=== PATIENT | male | born 1950 | race Caucasian/White ===

== ENCOUNTER → 2017-01-25 | Outpatient (CLI) | payer BC | LOC: FIMAGING 09:40 | PROVIDERS: ATTEND Internal Medicine | DX: R91.1 Solitary pulmonary nodule (principal); Z87.891 Personal history of nicotine dependence; I25.10 Atherosclerotic heart disease of native coronary artery without angina pectoris; E04.1 Nontoxic single thyroid nodule ==

== ENCOUNTER 2017-05-11 06:22 | Day surgery (SDC) | payer BC ==
[2017-05-11] MEDS ORDERED: LR 1,000 ML IV ONE (06:34)
[2017-05-11] MEDS ORDERED: LIDOCAINE 1% 2 ML INJ ID PRN (06:34)
[2017-05-11] MEDS ORDERED: PROPOFOL 200 MG/20 ML VIAL ONE (06:43)
[2017-05-11] MEDS ORDERED: fentaNYL 100 MCG/2 ML INJ ONE ×3 (06:43→11:42)
[2017-05-11] MEDS ORDERED: ROCURONIUM 50 MG/5 ML VIAL ONE (06:44)
[2017-05-11] MEDS ORDERED: LIDOCAINE 2% 5 ML SDV ONE (06:44)
[2017-05-11] MEDS ORDERED: DEXAMETHASONE 4 MG/ML VIAL ONE ×2 (06:51)
[2017-05-11] MEDS ORDERED: ONDANSETRON 4 MG/2 ML VIAL ONE ×3 (06:51→10:48)
--- NOTE | 2017-05-11 07:02 | PDANEPAE ---
ANE History of Present Illness 66 year old male w/ PMHx of HTN, CAD presents for microdirect laryngoscopy with CO2 laser of airway. ANE Past Medical History - Cardiovascular History Hx Hypertension: Yes Hx Arrhythmias: No Hx Chest Pain: No Hx Coronary Artery / Peripheral Vascular Disease: No Hx CHF / Valvular Disease: No Hx Palpitations: No Cardiovascular History Comment: hyperlipidemia. CAD. ANGIOGRAM 2009 - Pulmonary History Hx COPD: No Hx Asthma/Reactive Airway Disease: No Hx Recent Upper Respiratory Infection: No Hx Oxygen in Use at Home: No Hx Sleep Apnea: No Sleep Apnea Screening Result - Last Documented: Positive Pulmonary History Comment: camille triggers - Neurologic History Hx Cerebrovascular Accident: No Hx Seizures: No Hx Dementia: No - Endocrine History Hx Diabetes: No Hypothyroid: No Hyperthyroid: No Obesity: mild Endocrine History Comment: hx of thyroid nodule - Renal History Hx Renal Disorders: Yes Renal History Comment: bph - Liver History Hx Hepatic Disorders: No - Neurological & Psychiatric Hx Hx Neurological and Psychiatric Disorders: No - Cancer History Hx Cancer: No Cancer History Comment: family hx - Congenital Disorder History Hx Congenital Disorders: No - GI History GERD: mild Hx Gastrointestinal Disorders: No Gastrointestinal History Comment: OCCAS HEARTBURN - Other Health History Other Health History: wears glasses for distance - Chronic Pain History Chronic Pain: No - Surgical History Prior Surgeries: 2015 microlaryngoscopy with Jared. ANGIOGRAM - 2009 ANE Review of Systems - Exercise capacity Exercise capacity: >=4 METS (Very physically active, exercises 6 days per week for > 1hour. No chest pain.) METS (RN): 4 METS ANE Patient History - Allergies Allergies/Adverse Reactions: No Known Allergies Allergy (Verified 04/26/17 10:15) - Home Medications Home medications: home medication list seen and reviewed Home Medications: Acyclovir [Zovirax 400 mg (RX)] 01/09/15 [Last Taken Unknown] Aspirin [Aspirin 81mg (OTC)] 01/09/15 [Last Taken Unknown] Beta-Carotene(A) W-C & E/Min [Ocuvite] 01/09/15 [Last Taken Unknown] Carvedilol [Coreg] 01/09/15 [Last Taken Unknown] Cholecalciferol Vit D3 [Vitamin D] 01/09/15 [Last Taken Unknown] Lisinopril [Zestril] 01/09/15 [Last Taken Unknown] Hudson-3 Fatty Acids [Fish Oil] 01/09/15 [Last Taken Unknown] Finasteride 04/26/17 [Last Taken Unknown] - NPO status NPO Status: no food or drink >8 hours - Anes Hx Anes Hx: no prior problems - Smoking Hx Smoking Status: Former smoker - Family Anes Hx Family Anes Hx: neg - N/A Family Hx Anesthesia Complications: none ANE Labs/Vital Signs - Vital Signs Vital Signs: reviewed preoperatively; see RN documention for details Height: 177.8 cm Weight: 90.718 kg ANE Physical Exam - Airway Neck exam: FROM Mallampati Score: Class 1 Mouth exam: normal dental/mouth exam - Pulmonary Pulmonary: no respiratory distress - Cardiovascular Cardiovascular: regular rate and rhythym - ASA Status ASA Status: II ANE Anesthesia Plan Anesthesia Plan: general endotracheal anesthesia
[2017-05-11] MEDS ORDERED: OXYMETAZOLINE 30 ML NASAL SPRAY ONE (07:03)
[2017-05-11] MEDS ORDERED: DEXAMETHASONE 4 MG/ML VIAL IVP ONE (07:04)
--- NOTE | 2017-05-11 07:06 | PDHPUP ---
History & Physical Update H&P update statement: This history and physical update is based on an assessment of the patient which was completed after admission or registration (within 24 hours), but prior to the surgery/procedure. H&P update: H&P reviewed & patient examined, no change in patient's condition since H&P completed
[2017-05-11] MEDS ORDERED: MIDAZOLAM 2 MG/2 ML VIAL IVP ONE (07:30)
[2017-05-11] MEDS ORDERED: NALOXONE HCL 0.4 MG/ML INJ IVP PRN (08:30)
[2017-05-11] MEDS ORDERED: HYDROCODONE/APAP 5/325 TAB PO PRN (08:30)
[2017-05-11] MEDS ORDERED: SUGAMMADEX SODIUM 200 MG/2 ML VIAL IVP ONE ×2 (08:38)
--- NOTE | 2017-05-11 08:45 | POSTOPPROG ---
Post Op Note Date of Operation: 05/11/17 Surgeon: Allen Coleman Anesthesia: GET(General Endotracheal) Pre-op Diagnosis: right vocal cord lkesion Post-op Diagnosis: same Procedure: microlaryngoscopy and excision and laser of right vocal lesion Inf/Abcess present in the surg proc area at time of surgery?: No Depth: Superfical (Skin SQ) EBL: 50-100 Total fluids administered: 500 Complications: none Specimen(s): right vocal lesion
[2017-05-11] MEDS: fentaNYL 100 MCG/2 ML INJ IVP PRN ×3 (09:27→11:44)
[2017-05-11] MEDS: ONDANSETRON 4 MG/2 ML VIAL IVP PRN ×2 (09:33→10:52)
[2017-05-11 10:37] VITALS: TEMP 98.1
[2017-05-11] MEDS ORDERED: PROMETHAZINE HCL 25 MG/ML INJ IVP ONE (11:45)
[2017-05-11] MEDS ORDERED: PROMETHAZINE HCL 25 MG/ML INJ ONE (11:49)
[2017-05-11 12:59] VITALS: O2SAT 94
[2017-05-11 13:47] VITALS: RESP 16
[2017-05-11 13:53] VITALS: BP 132/82; PULSE 71
--- NOTE | 2017-05-11 14:18 | GOP ---
[f rep st] OPERATIVE REPORT DATE OF OPERATION: 05/11/2017 SURGEON: Madi Coleman MD ANESTHESIA: General endotracheal. PREOPERATIVE DIAGNOSIS: Right vocal lesion. POSTOPERATIVE DIAGNOSIS: Right vocal lesion. PROCEDURE PERFORMED: Microlaryngoscopy with excision of right vocal cord lesion and laser of base. FINDINGS: Right vocal lesion completely excised, with laser ablation of surrounding mucosa. ESTIMATED BLOOD LOSS: 2 mL. DESCRIPTION OF PROCEDURE: The patient was placed on the operating table in supine position. After induction of adequate general endotracheal anesthesia, sterile draping was performed. Sterile eye p ads and head drape were placed. A rubber tooth guard was placed along the upper incisors to protect them. The laryngoscope was advanced into the oral cavity and then the oropharynx and then used to visualize the larynx. The right vocal cord lesion was well visualized. This was grasped with a cup forceps and retracted superomedially. Up-pointed micro scissors were used then to incise the mucos a on the superior aspect of the vocal cord. Using blunt and sharp dissection, the mucosa surroundin g the lesion was elevated off the underlying vocal ligament, with care given to avoidance of injury to the vocal ligament. The incision was then carried further medially, anteriorly, and posteriorly, completely encompassing the lesion. Again, as dissection proceeded, care was given to the avoidanc e of injury to the vocal ligament. The lesion was noted to extend somewhat across the inferior port ion of the vocal cord. The affected mucosa was retracted somewhat superomedially, and the deep aspe ct of the lesion was visualized. The mucosal incisions were then widely created, completely encompa ssing the vocal lesion. This was then completely excised and handed off. The margin of the resecti on was treated with the CO2 laser. The laser was used at 5 hoang continuous in a defocused fashion in order to ablate the surrounding mucosa. Again, care was given to the avoidance of injury to the vocal ligament. The patient was then awakened and transferred to the postanesthesia recovery in sta ble condition. FLUID REPLACEMENT: 500 mL. COMPLICATIONS: None. /[id number]/MODL
--- NOTE | 2017-05-11 15:13 | POSTANESTH ---
Post Anesthetic Evaluation Cardiovascular Status: Normal, Stable Respiratory Status: Normal, Stable Level of Consciousness/Mental Status: Can Participate in Eval Pain Control: Adequate, Prn Tx Ordered Nausea/Vomiting Control: Inadeq, Add Tx Reqired Complications Possibly Related to Anesthesia: None Noted
== END 2017-05-11 13:35 | disposition home or self-care (01) ==
LOC: FSGY 06:22
PROVIDERS: ATTEND Otolaryngology
PROC: 0CBT8ZX Excision of Right Vocal Cord, Via Natural or Artificial Opening Endoscopic, Diagnostic (ICD-10-PCS; principal; 2017-05-11 07:45)
PROC: 0C5T8ZZ Destruction of Right Vocal Cord, Via Natural or Artificial Opening Endoscopic (ICD-10-PCS; principal; 2017-05-11 07:45)
DX: J38.3 Other diseases of vocal cords (principal)
CPT/HCPCS: J1100; J2250; J2405; J2550; J2704; J3010